=== PATIENT | male | born 1995 | race African-American/Black ===

== ENCOUNTER 2020-05-30 09:40 | Emergency (ER) | payer MEDICAID ==
[~2020-05-30] VITALS: Ht 182.9 cm; Wt 75.0 kg
[2020-05-30 11:33] LABS: EOSINOPHILS % 9.8 % (0.0-5.0); HEMATOCRIT. 39.4 % (42.0-52.0); HEMOGLOBIN. 13.4 g/dL (14.0-18.0); LYMPHOCYTES % 27.6 % (20.0-50.0); MEAN CORPUSCULAR HEMOGLOBIN 31.5 pg (28.0-32.0); MEAN CORPUSCULAR VOLUME 92.9 fL (80.0-94.0); MEAN PLATELET VOLUME 8.2 fl (7.4-10.4); MONOCYTES % 5.7 % (2.0-8.0); NEUTROPHILS % 55.9 % (40.0-76.0); PLATELET 184 x1000/uL (130-400); RED BLOOD CELL COUNT 4.24 mill/uL (4.7-6.1); RED CELL DISTRIBUTION WIDTH 13.7 % (11.6-14.6)
[2020-05-30 11:40] LABS: CHLORIDE 109 mEq/L (98-107)
[2020-05-30 12:14] VITALS: BP 118/60
== END 2020-05-30 12:15 | disposition home or self-care (01) ==
LOC: ER 09:40
DX: K64.9 Unspecified hemorrhoids (principal); Z88.6 Allergy status to analgesic agent; Z88.8 Allergy status to other drugs, medicaments and biological substances
CPT/HCPCS: 36415; 80053; 85025; 99283